=== PATIENT | male | born 1955 | race African-American/Black ===

== ENCOUNTER 2024-03-28 19:43 | Emergency (ER) | payer OTHER ==
[~2024-03-28] VITALS: Ht 188 cm; Wt 100.0 kg
[2024-03-28 19:45] VITALS: O2SAT 98
[2024-03-28 20:03] VITALS: TEMP 36.39180
[2024-03-28 21:22] LABS: BASOPHILS % 0.3 % (0.0-2.0); EOSINOPHILS % 2.8 % (0.0-5.0); HEMATOCRIT. 32.5 % (42.0-52.0); HEMOGLOBIN. 10.5 g/dL (14.0-18.0); LYMPHOCYTES % 19.1 % (20.0-50.0); MEAN CORPUSCULAR HEMOGLOBIN 27.8 pg (28.0-32.0); MEAN CORPUSCULAR HGB CONC 32.3 g/dL (31.0-37.0); MEAN CORPUSCULAR VOLUME 85.9 fL (80.0-94.0); MEAN PLATELET VOLUME 7.9 fl (7.4-10.4); MONOCYTES % 5.5 % (2.0-8.0); NEUTROPHILS % 72.3 % (40.0-76.0); PLATELET 157 x1000/uL (130-400); RED BLOOD CELL COUNT 3.79 mill/uL (4.7-6.1); RED CELL DISTRIBUTION WIDTH 14.5 % (11.6-14.6); WHITE BLOOD COUNT 6.5 x1000/uL (4.5-11.0)
[2024-03-28 21:29] LABS: CHLORIDE 111 mEq/L (98-107); POTASSIUM 3.9 mEq/L (3.5-5.1); SODIUM 146 mEq/L (136-145)
[2024-03-28 21:30] LABS: CARBON DIOXIDE 21 mEq/L (21-32)
[2024-03-28 21:35] LABS: CREATININE 1.6 mg/dL (0.6-1.3); GLUCOSE 118 mg/dL (70-105); UREA NITROGEN BLOOD 18 mg/dL (9-23)
[2024-03-28 21:40] LABS: LACTIC ACID 4.2 mmol/L (0.4-2.0); TROPONIN I HIGH SENSITIVITY < 4 ng/L (3.0-53)
[2024-03-28 22:41] VITALS: TEMP 97.5
[2024-03-28] MEDS: ACETAMINOPHEN 325MG TABLET PO ONE (22:41)
[2024-03-28] MEDS: ONDANSETRON HCL 4MG/2ML INJ IV ONE (22:41)
[2024-03-28 22:58] LABS: CLARITY URINE CLEAR (CLEAR); COLOR URINE YELLOW (YELLOW); GLUCOSE URINE NEGATIVE (NEGATIVE); KETONES URINE NEGATIVE (NEGATIVE); LEUKOCYTE ESTERASE URINE NEGATIVE (NEGATIVE); NITRITE URINE NEGATIVE (NEGATIVE); OCCULT BLOOD URINE NEGATIVE (NEGATIVE); PH URINE 5.5 (4.5-8.0); PROTEIN URINE NEGATIVE (NEGATIVE); SPECIFIC GRAVITY URINE 1.012 (1.005-1.030); UROBILINOGEN URINE 0.2 E.U./dL (0.2-1.0)
[2024-03-29] VITALS: BP 124/60; PULSE 72; RESP 18; O2SAT 100
== END 2024-03-29 00:12 | disposition home or self-care (01) ==
LOC: ER 19:43
DX: S00.83XA Contusion of other part of head, initial encounter (principal); R55 Syncope and collapse; E11.9 Type 2 diabetes mellitus without complications; F17.200 Nicotine dependence, unspecified, uncomplicated; I10 Essential (primary) hypertension; W22.09XA Striking against other stationary object, initial encounter; Y93.89 Activity, other specified; Y92.009 Unspecified place in unspecified non-institutional (private) residence as the place of occurrence of the external cause; Y99.8 Other external cause status
CPT/HCPCS: 99285; 96374; 70450; 71045; 80048; 81003; 83605; 85025; 84484; 36415; 93005; J2405